=== PATIENT | female | born 1955 | race African-American/Black ===

== ENCOUNTER 2016-08-19 21:01 | Emergency (ER) | payer OTHER ==
[~2016-08-19] VITALS: Ht 170.2 cm; Wt 103.4 kg
[~2016-08-19 21:01] MED LIST: Aspirin E.C. PO; BENICAR HCT 401 EACH PO; BENICAR40 MG PO; CATAPRES0.3 MG PO; CIPRO500 MG PO; CLONIDINE HCL0.3 MG PO; DIFLUCAN150 MG PO; GLUCOPHAGE1000 MG PO; GLUCOTROL XL10 MG PO; LANTUS 10100 UNITS/ SC; LIPITOR10 MG PO; Lipitor PO; NOVOLOG 10100 UNITS/ SC; PREDNISONE20 MG PO; PRILOSEC20 MG PO; PROAIR HFA8.5 GM IH; Plavix PO; Xanax PO
[2016-08-19] MEDS ORDERED: TRAMADOL HCL50 MG PO (22:22)
[2016-08-19] MEDS ORDERED: MOTRIN600 MG PO (22:22)
[2016-08-19] MEDS ORDERED: KEFLEX500 MG PO (22:28)
[2016-08-19 22:40] VITALS: BP 166/92
== END 2016-08-19 22:41 | disposition home or self-care (01) ==
LOC: EME 21:01
DX: K02.9 Dental caries, unspecified (principal); E11.9 Type 2 diabetes mellitus without complications; I10 Essential (primary) hypertension
CPT/HCPCS: 99281; 99284

== ENCOUNTER 2016-11-15 22:49 | Emergency (ER) | payer OTHER ==
[~2016-11-15] VITALS: Ht 170.2 cm; Wt 95.4 kg
[~2016-11-15 22:49] MED LIST changes: +KEFLEX500 MG PO; +MOTRIN600 MG PO; +TRAMADOL HCL50 MG PO
[2016-11-15 23:22] LABS: MCH 29.1 PG (29.0-34.0); MCHC 33.3 G/DL (30.0-36.0); MCV 87.6 FL (83-99); RBC DIS.WIDTH-CV 12.9 % (11.8-14.6); RBC DIS.WIDTH-SD 41.1 % (39-53); RED BLOOD COUNT 4.91 M/uL (3.80-5.20); WHITE BLOOD COUNT 11.1 K/uL (4.1-10.2)
[2016-11-15 23:34] LABS: CHLORIDE 96 mEq/L (99-109); POTASSIUM 4.1 mEq/L (3.7-5.4); SODIUM 134 mEq/L (136-147)
[2016-11-15 23:36] LABS: GLUCOSE 153 mg/dL (70-99)
[2016-11-15 23:38] LABS: ANION GAP 14 MEQ/L (2-14); TOTAL BILIRUBIN 1.1 mg/dL (0.0-1.0)
[2016-11-15 23:40] LABS: ALKALINE PHOSPHATASE 68 IU/L (3-129); GFR ESTIMATE (CALCULATED) 59 mL/min/
[2016-11-15 23:41] LABS: UREA NITROGEN (BUN) 13 mg/dL (9-23)
[2016-11-16] LABS: ADD MIUA? YES; BILIRUBIN NEGATIVE; BLOOD SMALL; COLOR YELLOW ((YELLOW)); GLUCOSE (STRIP) NEGATIVE; KETONES 20; LEUKOCYTES NEGATIVE; NITRITE NEGATIVE; PROTEIN (STRIP) 30; SPECIFIC GRAVITY 1.014 (1.000-1.030); UROBILINOGEN 0.2 MG/DL (0.2-1.0)
[2016-11-16 00:05] LABS: BACTERIA 1+ /HPF; EPITHELIAL CELLS RARE /HPF; HYALINE CASTS 0-5 /LPF; MUCUS TRACE /LPF; RED BLOOD CELLS 0-5 /HPF (0-5); UCUL ADDED? NO; WHITE BLOOD CELLS 0-5 /HPF (0-5)
[2016-11-16 00:11] LABS: MEAN PLAT.VOLUME 10.3 uM^3 (9.5-12.4); PLAT.SUFFICIENCY ADEQUATE; PLATELET COUNT 345 K/uL (156-360)
[2016-11-16 00:22] LABS: LIPASE 27 U/L (1.0-51.0)
[2016-11-16] MEDS ORDERED: ZOFRAN4 MG PO (00:31)
[2016-11-16] MEDS ORDERED: ZITHROMAX Z-PA250 MG PO (00:31)
[2016-11-16 00:46] VITALS: BP 152/88
== END 2016-11-16 00:48 | disposition home or self-care (01) ==
LOC: EME 22:49
PROVIDERS: Physician Assistant
DX: R11.2 Nausea with vomiting, unspecified (principal); R53.83 Other fatigue; R51 Headache; R42 Dizziness and giddiness; T36.0X5A Adverse effect of penicillins, initial encounter; I10 Essential (primary) hypertension; E11.9 Type 2 diabetes mellitus without complications; Z79.84 Long term (current) use of oral hypoglycemic drugs; K05.10 Chronic gingivitis, plaque induced
CPT/HCPCS: 80053; 81003; 83605; 83690; 85027; 87040; 99281; 99285; J1200; J2405; J7030

== ENCOUNTER 2016-11-19 15:24 | Inpatient (IN) | payer OTHER ==
[~2016-11-19] VITALS: Ht 170.2 cm; Wt 96.0 kg
[~2016-11-19 15:24] MED LIST changes: +ZITHROMAX Z-PA250 MG PO; +ZOFRAN4 MG PO
[2016-11-19 18:24] LABS: BASOPHIL COUNT 0.1 K/uL (0-0.1); EOSINOPHIL (%) 0.4 % (0-5); EOSINOPHIL COUNT 0.1 K/uL (0-0.3); IMMATURE GRANULOCYTE (%) 0.3 % (0.0-0.7); INSTRUMENT ABS NEUTROPHIL CT 10.2 K/uL; LYMPHOCYTE COUNT 2.1 K/uL (1.0-2.8); MCH 29.3 PG (29.0-34.0); MCHC 33.3 G/DL (30.0-36.0); MCV 87.9 FL (83-99); MEAN PLAT.VOLUME 9.9 uM^3 (9.5-12.4); MONOCYTE (%) 3.4 % (3-12); MONOCYTE COUNT 0.4 K/uL (0-0.8); NEUTROPHIL (%) 79.4 % (45-76); NEUTROPHIL COUNT 10.2 K/uL (1.8-6.4); PLATELET COUNT 310 K/uL (156-360); RBC DIS.WIDTH-CV 12.7 % (11.8-14.6); RBC DIS.WIDTH-SD 40.9 % (39-53); RED BLOOD COUNT 5.12 M/uL (3.80-5.20); WHITE BLOOD COUNT 12.8 K/uL (4.1-10.2)
[2016-11-19 18:36] LABS: CHLORIDE 93 mEq/L (99-109); POTASSIUM 3.8 mEq/L (3.7-5.4); SODIUM 131 mEq/L (136-147)
[2016-11-19 18:38] LABS: GLUCOSE 140 mg/dL (70-99)
[2016-11-19 18:38] LABS: ADD MIUA? YES; BILIRUBIN NEGATIVE; BLOOD NEGATIVE; COLOR YELLOW ((YELLOW)); GLUCOSE (STRIP) NEGATIVE; KETONES 5; LEUKOCYTES NEGATIVE; NITRITE NEGATIVE; PROTEIN (STRIP) 30; SPECIFIC GRAVITY 1.013 (1.000-1.030); UROBILINOGEN 0.2 MG/DL (0.2-1.0)
[2016-11-19 18:40] LABS: ANION GAP 25 MEQ/L (2-14); TOTAL BILIRUBIN 0.9 mg/dL (0.0-1.0)
[2016-11-19 18:42] LABS: ALKALINE PHOSPHATASE 64 IU/L (3-129)
[2016-11-19 18:45] LABS: GFR ESTIMATE (CALCULATED) 24 mL/min/; LIPASE 124 U/L (1.0-51.0); UREA NITROGEN (BUN) 40 mg/dL (9-23)
[2016-11-19 18:53] LABS: AMPHETAMINE NEGATIVE (500 ng/mL); BARBITURATES NEGATIVE (200 ng/mL); BENZODIAZEPINES NEGATIVE (150 ng/mL); COCAINE NEGATIVE (150 ng/mL); INTERNAL CONTROLS VALID? YES; METHADONE NEGATIVE (200 ng/mL); METHAMPHETAMINE NEGATIVE (500 ng/mL); OPIATES (MORPHINE) NEGATIVE (100 ng/mL); OXYCODONE NEGATIVE (100 ng/mL); PHENCYCLIDINE NEGATIVE (25 ng/mL); PROPOXYPHENE NEGATIVE (300 ng/mL); THC CANNABINOIDS NEGATIVE (50 ng/mL); TRICYCLIC ANTIDEPRESSANTS NEGATIVE (300 ng/mL)
[2016-11-19 18:54] LABS: TROP-I INTERPRETATION NEGATIVE; TROPONIN-I < 0.01 ng/mL (0.0-0.30)
[2016-11-19 18:55] LABS: BACTERIA RARE /HPF; CALCIUM OXALATE CRYSTALS 1+ /HPF; EPITHELIAL CELLS 1+ /HPF; HYALINE CASTS 20-30 /LPF; MUCUS TRACE /LPF; RED BLOOD CELLS 0-5 /HPF (0-5); UCUL ADDED? NO; WHITE BLOOD CELLS 0-5 /HPF (0-5)
[2016-11-19 19:02] LABS: INTER. NORMALIZED RATIO 1.1; PROTHROMBIN TIME 11.7 SEC (10.2-12.9)
[2016-11-19 19:15] LABS: PTT 20.4 SEC (25-37)
[2016-11-19] MEDS ORDERED: OLMESARTAN-HCT1 EAC1 PO (21:03)
[2016-11-19] MEDS ORDERED: NOVOLOG 10100 UNITS/ SC (21:05)
[2016-11-19] MEDS ORDERED: LO-DOSE ASPIRIN81 M2 PO (21:06)
[2016-11-19 23:00] VITALS: BP 139/65
[2016-11-19 23:15] VITALS: BP 139/65
[2016-11-19 23:41] LABS: POINT-OF-CARE METER ID UU14208753
[2016-11-20] VITALS (9 sets, daily range): BP systolic 113–191; BP diastolic 57–88
[2016-11-20 06:34] LABS: ALKALINE PHOSPHATASE 51 IU/L (3-129); ANION GAP 10 MEQ/L (2-14); CHLORIDE 101 MEQ/L (99-109); POTASSIUM 4.1 MEQ/L (3.7-5.4); SAMPLE HEMOLYSIS CHECK 0; SAMPLE ICTERIC CHECK 0; SAMPLE LIPEMIA CHECK 0; SODIUM 135 MEQ/L (136-147); UREA NITROGEN (BUN) 29 mg/dL (9-23)
[2016-11-20 06:40] LABS: POINT-OF-CARE METER ID UU14208753
[2016-11-20 06:41] LABS: HEMATOCRIT 38.9 % (36.0-46.0); MCH 28.9 PG (29.0-34.0); MCHC 33.2 G/DL (30.0-36.0); MCV 87.2 FL (83-99); MEAN PLAT.VOLUME 10.4 uM^3 (9.5-12.4); PLAT.SUFFICIENCY ADEQUATE; PLATELET COUNT 323 K/uL (156-360); RBC DIS.WIDTH-CV 12.8 % (11.8-14.6); RBC DIS.WIDTH-SD 40.6 % (39-53); RED BLOOD COUNT 4.46 M/uL (3.80-5.20); WHITE BLOOD COUNT 12.2 K/uL (4.1-10.2)
[2016-11-20 06:44] LABS: GFR ESTIMATE (CALCULATED) 59 mL/min/; GLUCOSE 100 mg/dL (70-99)
[2016-11-20 11:44] LABS: POINT-OF-CARE METER ID UU14117124
[2016-11-21 04:04] VITALS: BP 150/75
[2016-11-21 06:33] LABS: POINT-OF-CARE METER ID UU14188577
[2016-11-21 07:06] LABS: HEMATOCRIT 33.7 % (36.0-46.0); MCH 30.2 PG (29.0-34.0); MCHC 33.8 G/DL (30.0-36.0); MCV 89.4 FL (83-99); MEAN PLAT.VOLUME 10.8 uM^3 (9.5-12.4); PLATELET COUNT 288 K/uL (156-360); RBC DIS.WIDTH-CV 13.2 % (11.8-14.6); RBC DIS.WIDTH-SD 43.2 % (39-53); RED BLOOD COUNT 3.77 M/uL (3.80-5.20); WHITE BLOOD COUNT 7.2 K/uL (4.1-10.2)
[2016-11-21 07:36] VITALS: BP 147/68
[2016-11-21 07:37] LABS: ANION GAP 9 MEQ/L (2-14); CHLORIDE 106 MEQ/L (99-109); GFR ESTIMATE (CALCULATED) > 59 mL/min/; GLUCOSE 95 mg/dL (70-99); POTASSIUM 4.1 MEQ/L (3.7-5.4); SAMPLE HEMOLYSIS CHECK 0; SAMPLE ICTERIC CHECK 0; SAMPLE LIPEMIA CHECK 0; SODIUM 139 MEQ/L (136-147); UREA NITROGEN (BUN) 14 mg/dL (9-23)
[2016-11-21 07:40] LABS: Estimated Average Glucose 169 mg/dL (70-123); HEMOGLOBIN A1c (GLYCOHEMOGLOB) 7.5 % HGB (Below 5.7)
[2016-11-21 10:01] LABS: LIPASE 131 U/L (1.0-51.0)
[2016-11-21 11:54] LABS: POINT-OF-CARE METER ID UU14188577
[2016-11-21 12:49] VITALS: BP 152/74
[2016-11-21 16:43] LABS: POINT-OF-CARE METER ID UU14188577
[2016-11-21 16:46] VITALS: BP 184/88
[2016-11-21 17:03] LABS: HDL CHOLESTEROL 37 MG/DL (Desirable>=50); LDL CHOLESTEROL 162 mg/dL (Desirable<100); NON-HDL CHOLESTEROL 180 mg/dL (Desirable<160); TOTAL CHOLESTEROL 217 mg/dL (Desirable<200); TRIGLYCERIDES 90 MG/DL (Normal: <150)
[2016-11-21 19:35] VITALS: BP 173/81
[2016-11-21 20:00] VITALS: BP 145/78
[2016-11-22 00:05] VITALS: BP 139/67
[2016-11-22 04:41] VITALS: BP 153/78
[2016-11-22 08:35] VITALS: BP 165/74
[2016-11-22 08:44] LABS: MCH 30.3 PG (29.0-34.0); MCHC 33.9 G/DL (30.0-36.0); MCV 89.6 FL (83-99); MEAN PLAT.VOLUME 10.8 uM^3 (9.5-12.4); PLATELET COUNT 291 K/uL (156-360); RBC DIS.WIDTH-CV 13.1 % (11.8-14.6); RBC DIS.WIDTH-SD 42.9 % (39-53); RED BLOOD COUNT 4.02 M/uL (3.80-5.20); WHITE BLOOD COUNT 8.1 K/uL (4.1-10.2)
[2016-11-22 09:14] LABS: ANION GAP 9 MEQ/L (2-14); CHLORIDE 109 MEQ/L (99-109); GFR ESTIMATE (CALCULATED) > 59 mL/min/; GLUCOSE 96 mg/dL (70-99); LIPASE 140 U/L (1.0-51.0); SAMPLE HEMOLYSIS CHECK 0; SAMPLE ICTERIC CHECK 0; SAMPLE LIPEMIA CHECK 0; SODIUM 141 MEQ/L (136-147); UREA NITROGEN (BUN) 9 mg/dL (9-23)
[2016-11-22] MEDS ORDERED: KENALOG,ARISTOC80 G1 TP (10:32)
[2016-11-22] MEDS ORDERED: ONDANSETRON ODT4 MG PO (10:32)
[2016-11-22 12:11] VITALS: BP 144/91
== END 2016-11-22 13:00 | disposition home or self-care (01) | DRG 683 ==
LOC: EME 15:24 → EDOF 21:23 → 3EAST 21:23 → ENRESERV 21:24 → 3EAST 22:50
PROVIDERS: Emergency Medicine; Internal Medicine; Physician Assistant
DX: N17.9 Acute kidney failure, unspecified (principal); I16.0 Hypertensive urgency; I10 Essential (primary) hypertension; E86.0 Dehydration; K04.7 Periapical abscess without sinus; R74.8 Abnormal levels of other serum enzymes; D72.829 Elevated white blood cell count, unspecified; E11.9 Type 2 diabetes mellitus without complications; I42.9 Cardiomyopathy, unspecified; I25.10 Atherosclerotic heart disease of native coronary artery without angina pectoris; R11.2 Nausea with vomiting, unspecified; R26.9 Unspecified abnormalities of gait and mobility; K21.9 Gastro-esophageal reflux disease without esophagitis; E78.5 Hyperlipidemia, unspecified; L40.9 Psoriasis, unspecified; F41.9 Anxiety disorder, unspecified; Z98.61 Coronary angioplasty status; I25.2 Old myocardial infarction; Z79.4 Long term (current) use of insulin; Z82.49 Family history of ischemic heart disease and other diseases of the circulatory system; Z83.3 Family history of diabetes mellitus
CPT/HCPCS: 70450; 71020; 74178; 80048; 80053; 80061; 81003; 82948; 83036; 83690; 83880; 84484; 85025; 85027; 85610; 85730; 99281; 99285; J0360; J1200; J1644; J1815; J2765; J7030